=== PATIENT | female | born 1975 | race Caucasian/White ===

== ENCOUNTER 2016-08-28 23:02 | Emergency (ER) | payer OTHER ==
[~2016-08-28] VITALS: Ht 170.2 cm; Wt 120.0 kg
[~2016-08-28 23:02] MED LIST: PERC5TAB12 PO
[2016-08-28] MEDS ORDERED: LORazepam 2 MG/ML VIAL IV PUSH ONE (23:15)
[2016-08-28] MEDS ORDERED: SODIUM CHLORIDE 0.9% FLUSH 10 ML FLUSH IVF PRN (23:15)
[2016-08-28 23:16] VITALS: BP 179/107; PULSE 87; RESP 18; TEMP 98.4; O2SAT 100
[2016-08-28 23:18] VITALS: RESP 18; O2SAT 100
[2016-08-28 23:27] VITALS: BP_SYST 158; BP_SYST 179; BP_DIAS 101; BP_DIAS 107
[2016-08-28 23:31] LABS: AUTOMATED NEUTROPHIL # 6.5 TH/MM3 (1.8-7.7); BASOPHIL # 0.1 TH/MM3 (0-0.2); BASOPHIL % 0.6 % (0.0-2.0); EOSINOPHIL # 0.2 TH/MM3 (0-0.4); EOSINOPHIL % 2.3 % (0.0-4.0); HEMATOCRIT 39.5 % (35.0-46.0); HEMO FLAGS DIFF FINAL; LYMPH % 31.2 % (9.0-44.0); LYMPHOCYTE # 3.3 TH/MM3 (1.0-4.8); MEAN CELL VOLUME 76.4 FL (80.0-100.0); MEAN CORPUSCULAR HEMOGLOBIN 25.7 PG (27.0-34.0); MEAN CORPUSCULAR HGB CONC 33.6 % (32.0-36.0); MONO % 3.8 % (0.0-8.0); NEUT % 62.1 % (16.0-70.0); PLATELET COUNT 284 TH/MM3 (150-450); RED BLOOD COUNT 5.17 MIL/MM3 (4.00-5.30); RED CELL DISTRIBUTION WIDTH 13.4 % (11.6-17.2); WHITE BLOOD COUNT 10.5 TH/MM3 (4.0-11.0)
[2016-08-28 23:38] LABS: CHLORIDE 103 MEQ/L (98-107); POTASSIUM 3.8 MEQ/L (3.5-5.1); SODIUM (NA) 139 MEQ/L (136-145)
[2016-08-28 23:42] LABS: ANION GAP 9 MEQ/L (5-15); BICARBONATE 26.8 MEQ/L (21.0-32.0); BLOOD UREA NITROGEN 14 MG/DL (7-18)
[2016-08-28 23:45] LABS: ALT (GPT) 29 U/L (10-53); AST (GOT) 12 U/L (15-37); GLOMERULAR FILTRATION RATE 66 ML/MIN (>89)
[2016-08-28 23:47] LABS: TOTAL BILIRUBIN ADULT 0.7 MG/DL (0.2-1.0)
[2016-08-28 23:48] LABS: ALKALINE PHOSPHATASE 122 U/L (45-117)
--- NOTE | 2016-08-28 23:48 | PD ---
HPI Chief Complaint: Chest Pain Time Seen by Provider: 23:12 Travel History International Travel<30 days: No Contact w/Intl Traveler<30days: No Traveled to known affect area: No History of Present Illness HPI Is a 41-year-old woman presents to the emergency department complaining of squeezing chest tightness and achiness to started about 9:30 this evening. She' s had recent episodes what she believes to be panic attacks associated with a restless feeling, and anxiety symptoms. She has not had chest pain or shortness of breath with these episodes. She does believe she is been under a lot more stress recently. She's been seen for chest pain one time in the past and was told it was anxiety. She otherwise has been feeling generally well and healthy. She has no history of recent illness or injury. No other complaints. History Past Medical History Narrative Medical Anxiety Tetanus Vaccination: < 5 Years Influenza Vaccination: Yes LMP: 08/22/16 : 5 Para: 1 Social History Alcohol Use: Yes (VERY RARELY, PER PT) Tobacco Use: No Allergies-Medications (Allergen,Severity, Reaction): Coded Allergies: Iodine (Verified Allergy, Severe, Anaphylaxis, 08/28/16) Shellfish (Verified Allergy, Severe, SWEELING TO THROAT AND FACE , 08/28/16 ) PT DENIES Reported Meds & Prescriptions Reported Meds & Active Scripts Active No Active Prescriptions or Reported Medications Review of Systems Except as stated in HPI: all other systems reviewed are Neg Physical Exam Narrative GENERAL: Well-appearing 41-year-old woman, little bit anxious., No acute distress. SKIN: Focused skin assessment warm/dry. HEAD: Atraumatic. Normocephalic. EYES: Pupils equal and round. No scleral icterus. No injection or drainage. ENT: No nasal bleeding or discharge. Mucous membranes pink and moist. NECK: Trachea midline. No JVD. CARDIOVASCULAR: Regular rate and rhythm. No murmur appreciated. RESPIRATORY: Mild tachypnea. No respiratory distress. Lungs are clear to auscultation. GASTROINTESTINAL: Abdomen soft, non-tender, nondistended. Hepatic and splenic margins not palpable. MUSCULOSKELETAL: No obvious deformities. No edema. NEUROLOGICAL: Awake and alert. No obvious cranial nerve deficits. Motor grossly within normal limits. Normal speech. PSYCHIATRIC: Appropriate mood and affect; insight and judgment normal. Data Data Last Documented VS Vital Signs Date Time Temp Pulse Resp B/P Pulse Ox O2 Delivery O2 Flow Rate FiO2 08/28/16 23:27 179/107 158/101 08/28/16 23:18 18 100 Room Air 08/28/16 23:18 87 08/28/16 23:16 98.4 Orders Electrocardiogram (08/28/16 23:12) Complete Blood Count With Diff (08/28/16 23:12) Comprehensive Metabolic Panel (08/28/16 23:12) Magnesium (Mg) (08/28/16 23:12) Troponin I (08/28/16 23:12) Chest, Single Ap (08/28/16 23:12) Ecg Monitoring (08/28/16 23:12) Bilateral Bp Monitoring (08/28/16 23:12) Iv Access Insert/Monitor (08/28/16 23:12) Oximetry (08/28/16 23:12) Oxygen Administration (08/28/16 23:12) Sodium Chloride 0.9% Flush (Ns Flush) (08/28/16:15) Lorazepam Inj (Ativan Inj) (08/28/16 23:15) Labs Laboratory Tests Test 08/28/16 23:18 White Blood Count 10.5 TH/MM3 Red Blood Count 5.17 MIL/MM3 Hemoglobin 13.3 GM/DL Hematocrit 39.5 % Mean Corpuscular Volume 76.4 FL Mean Corpuscular Hemoglobin 25.7 PG Mean Corpuscular Hemoglobin 33.6 % Concent Red Cell Distribution Width 13.4 % Platelet Count 284 TH/MM3 Mean Platelet Volume 7.9 FL Neutrophils (%) (Auto) 62.1 % Lymphocytes (%) (Auto) 31.2 % Monocytes (%) (Auto) 3.8 % Eosinophils (%) (Auto) 2.3 % Basophils (%) (Auto) 0.6 % Neutrophils # (Auto) 6.5 TH/MM3 Lymphocytes # (Auto) 3.3 TH/MM3 Monocytes # (Auto) 0.4 TH/MM3 Eosinophils # (Auto) 0.2 TH/MM3 Basophils # (Auto) 0.1 TH/MM3 CBC Comment DIFF FINAL Differential Comment Sodium Level 139 MEQ/L Potassium Level 3.8 MEQ/L Chloride Level 103 MEQ/L Carbon Dioxide Level 26.8 MEQ/L Anion Gap 9 MEQ/L Blood Urea Nitrogen 14 MG/DL Creatinine 0.94 MG/DL Estimat Glomerular Filtration 66 ML/MIN Rate Random Glucose 162 MG/DL Calcium Level 8.4 MG/DL Magnesium Level 2.0 MG/DL Total Bilirubin 0.7 MG/DL Aspartate Amino Transf 12 U/L (AST/SGOT) Alanine Aminotransferase 29 U/L (ALT/SGPT) Alkaline Phosphatase 122 U/L Troponin I LESS THAN 0.02 NG/ML Total Protein 6.7 GM/DL Albumin 3.5 GM/DL [facility] Medical Decision Making Medical Screen Exam Complete: Yes Emergency Medical Condition: Yes Interpretation(s) My review of EKG: Normal sinus rhythm at a rate of 81, normal axis, normal intervals, occasional PAC. No evidence of acute ischemia. My review of chest x-ray: No acute disease. LABS: CBC is unremarkable. CMP is unremarkable. Magnesium is unremarkable Troponin is negative. Differential Diagnosis Anxiety, panic, chest pain, PE, dissection, other Narrative Course Medical decision making Well 41-year-old woman presents emergency Department with anxiety symptoms with chest pain and pressure, shortness of breath. She looks well. Likely she is having a PE. She is a clear prodrome of increased anxiety symptoms of social stress. She's had one previous similar episode several years ago. EKG is unremarkable. Troponins negative. She has a low heart score. Recommend outpatient follow-up. Diagnosis Primary Impression: Anxiety Additional Impression: Chest pain Additional Instructions: Follow-up with your primary doctor in the next 2-4 days. Return to the emergency department for any worsening chest pain, trouble breathing, or any other new or worsening symptoms. Med/Other Pt SpecificInfo: No Change to Meds Scripts No Active Prescriptions or Reported Meds Disposition: 01 DISCHARGE HOME Condition: Stable Malik Lu MD August 28, 2016 23:48
--- NOTE | 2016-08-28 23:59 | PD ---
Data Data Last Documented VS Vital Signs Date Time Temp Pulse Resp B/P Pulse Ox O2 Delivery O2 Flow Rate FiO2 08/28/16 23:27 179/107 158/101 08/28/16 23:18 18 100 Room Air 08/28/16 23:18 87 08/28/16 23:16 98.4 Orders Electrocardiogram (08/28/16 23:12) Complete Blood Count With Diff (08/28/16 23:12) Comprehensive Metabolic Panel (08/28/16 23:12) Magnesium (Mg) (08/28/16 23:12) Troponin I (08/28/16 23:12) Chest, Single Ap (08/28/16 23:12) Ecg Monitoring (08/28/16 23:12) Bilateral Bp Monitoring (08/28/16 23:12) Iv Access Insert/Monitor (08/28/16 23:12) Oximetry (08/28/16 23:12) Oxygen Administration (08/28/16 23:12) Sodium Chloride 0.9% Flush (Ns Flush) (08/28/16 23:15) Lorazepam Inj (Ativan Inj) (08/28/16 23:15) Labs Laboratory Tests Test 08/28/16 23:18 White Blood Count 10.5 TH/MM3 Red Blood Count 5.17 MIL/MM3 Hemoglobin 13.3 GM/DL Hematocrit 39.5 % Mean Corpuscular Volume 76.4 FL Mean Corpuscular Hemoglobin 25.7 PG Mean Corpuscular Hemoglobin 33.6 % Concent Red Cell Distribution Width 13.4 % Platelet Count 284 TH/MM3 Mean Platelet Volume 7.9 FL Neutrophils (%) (Auto) 62.1 % Lymphocytes (%) (Auto) 31.2 % Monocytes (%) (Auto) 3.8 % Eosinophils (%) (Auto) 2.3 % Basophils (%) (Auto) 0.6 % Neutrophils # (Auto) 6.5 TH/MM3 Lymphocytes # (Auto) 3.3 TH/MM3 Monocytes # (Auto) 0.4 TH/MM3 Eosinophils # (Auto) 0.2 TH/MM3 Basophils # (Auto) 0.1 TH/MM3 CBC Comment DIFF FINAL Differential Comment Sodium Level 139 MEQ/L Potassium Level 3.8 MEQ/L Chloride Level 103 MEQ/L Carbon Dioxide Level 26.8 MEQ/L Anion Gap 9 MEQ/L Blood Urea Nitrogen 14 MG/DL Creatinine 0.94 MG/DL Estimat Glomerular Filtration 66 ML/MIN Rate Random Glucose 162 MG/DL Calcium Level 8.4 MG/DL Magnesium Level 2.0 MG/DL Total Bilirubin 0.7 MG/DL Aspartate Amino Transf 12 U/L (AST/SGOT) Alanine Aminotransferase 29 U/L (ALT/SGPT) Alkaline Phosphatase 122 U/L Troponin I LESS THAN 0.02 NG/ML Total Protein 6.7 GM/DL Albumin 3.5 GM/DL MDM Supervised Visit with MICAH: No Diagnosis Primary Impression: Anxiety Additional Impression: Chest pain Referrals: Costa Joe MD 2 days Additional Instruction: Follow-up with your primary doctor in the next 2-4 days. Return to the emergency department for any worsening chest pain, trouble breathing, or any other new or worsening symptoms. Scripts No Active Prescriptions or Reported Meds Disposition: 01 DISCHARGE HOME Condition: Stable Malik Lu MD August 28, 2016 23:59
[2016-08-29 00:11] VITALS: BP 151/90; PULSE 84; RESP 18; O2SAT 99
--- NOTE | 2016-08-29 00:11 | RADHPO ---
EXAM DATE/TIME: 08/28/2016 23:37 [facility] COMPARISON: CHEST SINGLE AP, December 16, 2015, 8:18. INDICATIONS : Chest pain. MEDICAL HISTORY : Polycystic ovary disease SURGICAL HISTORY : section. ENCOUNTER: Initial ACUITY: 1 day PAIN SCORE: 6/10 LOCATION: Bilateral chest FINDINGS: A single view of the chest demonstrates the lungs to be symmetrically aerated without evidence of mas s, infiltrate or effusion. The cardiomediastinal contours are unremarkable. Osseous structures are intact. CONCLUSION: No acute disease. No significant change has occurred. Bryan Mackey MD on August 29, 2016 at 0:09 Board Certified Radiologist. This report was verified electronically.
--- NOTE | 2016-08-29 15:13 | EKG ---
Date Performed: 08/28/2016 Time Performed: 23:17:02 PTAGE: 41 years EKG: Sinus rhythm with PAC(s) Since previous tracing, no significant change noted Borderline ECG PREVIOUS TRACING : 06/02/2015 05.49 DOCTOR: Lolis Thomas Interpretating Date/Time 08/29/2016 15:12:19
== END 2016-08-29 00:14 | disposition home or self-care (01) ==
LOC: PHED 23:02
DX: F41.9 Anxiety disorder, unspecified (principal); R07.9 Chest pain, unspecified
CPT/HCPCS: 71010; 80053; 83735; 84484; 85025; 93005; 96374; 99285; J2060

== ENCOUNTER 2016-10-23 16:27 | Emergency (ER) | payer BC, OTHER ==
[~2016-10-23] VITALS: Ht 170.2 cm; Wt 120.2 kg
[2016-10-23 16:27] VITALS: BP 111/81; PULSE 91; RESP 18; TEMP 97.8; O2SAT 100
[2016-10-23 16:35] VITALS: BP 143/100; PULSE 79; RESP 16; TEMP 97.8; O2SAT 99
--- NOTE | 2016-10-23 16:39 | PD ---
HPI . left knee pain Chief Complaint: Injury Time Seen by Provider: 16:38 Travel History International Travel<30 days: No Contact w/Intl Traveler<30days: No Traveled to known affect area: No History of Present Illness HPI 41-year-old female with history of depression here with complaints of left knee pain. Patient says she recently got a new kitten and was trying to follow weighted and somehow accidentally twisted her left knee. She tells me she immediately felt pain and had some type of crunching sensation in her knee. She tells me now when she walks he feels a stabbing shooting pain in her knee. Pain is rated at 7/10 without any radiation elsewhere. She denies head injury or loss of consciousness. PFSH Past Medical History Arthritis: No Asthma: No Heart Rhythm Problems: No Cardiovascular Problems: No High Cholesterol: No Chest Pain: No Congestive Heart Failure: No COPD: No Cerebrovascular Accident: No Diabetes: Yes (GESTATIONAL) Diminished Hearing: No Gastrointestinal Disorders: No GERD: No Genitourinary: No Headaches: No Hiatal Hernia: No Hypertension: Yes (PREECLAMPSIA HISTORY) Kidney Stones: No Musculoskeletal: No Neurologic: No Reproductive: Yes (Miscarriages) Respiratory: No Immunizations Current: Yes Migraines: No Renal Failure: No Seizures: Yes (PT STATES BUT NOT DIAGNOSED BY DR) Sleep Apnea: No Ulcer: No ?: Not LMP: 10/19/16 : 5 Para: 1 Miscarriage: 3 Past Surgical History Abdominal Surgery: No Cardiac Surgery: No Section: Yes (X2) Ear Surgery: No Endocrine Surgery: No Eye Surgery: No Genitourinary Surgery: No Neurologic Surgery: No Thoracic Surgery: No Tonsillectomy: Yes Social History Alcohol Use: Yes (VERY RARELY, PER PT) Tobacco Use: No Substance Use: No Allergies-Medications (Allergen,Severity, Reaction): Coded Allergies: Iodine (Verified Allergy, Severe, Anaphylaxis, 10/23/16) Shellfish (Verified Allergy, Severe, SWEELING TO THROAT AND FACE , 10/23/16) PT DENIES Reported Meds & Prescriptions Reported Meds & Active Scripts Active Ibuprofen 800 Mg Tab 800 Mg PO TID Reported Citalopram (Citalopram Hydrobromide) 10 Mg Tab 10 Mg PO DAILY Review of Systems General / Constitutional: No: Fever Eyes: No: Visual changes HENT: No: Headaches Cardiovascular: No: Chest Pain or Discomfort Respiratory: No: Shortness of Breath Gastrointestinal: No: Abdominal Pain Genitourinary: No: Dysuria Musculoskeletal: Positive: Pain (left knee) Skin: No Rash Neurologic: No: Weakness Psychiatric: No: Depression Endocrine: No: Polydipsia Hematologic/Lymphatic: No: Easy Bruising Physical Exam Narrative GENERAL: AAO x 3, no acute distress, Well-nourished, well-developed patient. obese SKIN: Warm and dry. No visible rashes or bruising. HEAD: Normocephalic and atraumatic. EYES: No scleral icterus. No injection or drainage. EOM intact, PERRLA ENT: No nasal drainage noted. Mucous membranes pink. Airway patent. NECK: Supple, trachea midline. No JVD. CARDIOVASCULAR: Regular rate and rhythm without murmurs, gallops, or rubs. RESPIRATORY: Breath sounds equal bilaterally. No accessory muscle use. No rhonchi or rales. GASTROINTESTINAL: Abdomen soft, non-tender, nondistended. EXTREMITIES: No cyanosis or edema. + point tenderness to patella. stress testing + b/l. pain elicited with flexion and extension. BACK: Nontender without obvious deformity. No CVA tenderness. NEURO: CN II-12 intact, campground hand strength normal b/l, UE and LE 5/5, no focal deficits PSYCH: AAO x 3, normal affect. Data Data Last Documented VS Vital Signs Date Time Temp Pulse Resp B/P Pulse Ox O2 Delivery O2 Flow Rate FiO2 10/23/16 16:35 97.8 79 16 143/100 99 Orders Knee, Complete (4vws) (10/23/16 16:42) Ketorolac Inj (Toradol Inj) (10/23/16 16:45) Vlad Bandage (10/23/16 17:19) Crutches (10/23/16 17:19) MDM Medical Decision Making Medical Screen Exam Complete: Yes Emergency Medical Condition: Yes Medical Record Reviewed: Yes Differential Diagnosis left knee strain, ligamentous injury of knee, less likely knee fracture, Narrative Course 41 yr old female here with left knee pain. Bp elevated, but patient is asymptomatic. She has point tenderness to the patella. Flexion and extension elicit pain. I do not suspect a patellar fracture. Nonetheless, I will check imaging to r/o fracture. Xray: no acute fracture. Vlad wrap and crutches provided for support and offloading. Ibuprofen. RICE Advised if pain persists 7-10 days, follow-up with primary care provider. Patient verbalized understanding of instructions, questions were answered, and thanked me for their care. I advised them if their condition worsens, please return to the nearest emergency room for further care. Diagnosis Primary Impression: Left knee pain Qualified Code: M25.562 - Acute pain of left knee Patient Instructions: General Instructions Additional Instructions: Rest the affected area as much as possible. Ice this area for 15-20 minutes at a time. You can do this every hour or as much as tolerated. Keep this area compressed (vlad bandage) as tolerated. Elevate this area. Use ibuprofen as needed for pain and inflammation. If pain persists 7-10 days, follow-up with your primary care provider Med/Other Pt SpecificInfo: Prescription(s) given Scripts Ibuprofen 800 Mg [id number] Mg PO TID #21 TAB Prov:Mia Morrison DO 10/23/16 Disposition: 01 DISCHARGE HOME Condition: Stable Ailin Quezada Oct 23, 2016 16:39
[2016-10-23] MEDS ORDERED: KETOROLAC TROMETHAMINE 60 MG/2 ML (IM) VIAL IM ONE (16:45)
[2016-10-23] MEDS ORDERED: CITA10TA4 PO (16:45)
[2016-10-23] MEDS ORDERED: IBUP800T23 PO (17:20)
--- NOTE | 2016-10-23 17:32 | RADRPT ---
EXAM DATE/TIME: 10/23/2016 17:01 [facility] COMPARISON: No previous studies available for comparison. INDICATIONS : Twisted knee today. Knee pain. MEDICAL HISTORY : Polycystic ovarian disease. SURGICAL HISTORY : None. ENCOUNTER: Initial ACUITY: 1 day PAIN SCORE: 7/10 LOCATION: Left knee FINDINGS: Four view examination of the left knee demonstrates no evidence of fracture or dislocation. Bony min eralization is normal. The articular surfaces are intact. The suprapatellar soft tissues have a nor mal configuration. CONCLUSION: No acute fracture. Gerardo Bruner MD on October 23, 2016 at 17:30 Board Certified Radiologist. This report was verified electronically.
== END 2016-10-23 17:52 | disposition home or self-care (01) ==
LOC: PHEFT 16:27
DX: M25.562 Pain in left knee (principal)
CPT/HCPCS: 73564; 96372; 99284; E0113; J1885

== ENCOUNTER 2017-07-12 12:54 | Observation (INO) | payer BC ==
[~2017-07-12 12:54] MED LIST changes: +CITA10TA4 PO; +IBUP1TAB7 PO; -PERC5TAB12 PO
[2017-07-12] MEDS ORDERED: NITROGLYCERIN 0.4 MG SL 25 TABS/BTL SL ONE (13:00)
[2017-07-12] MEDS ORDERED: ASPIRIN 325 MG TAB PO ONE (13:00)
[2017-07-12] MEDS ORDERED: SODIUM CHLORIDE 0.9% FLUSH 10 ML FLUSH IVF PRN (13:00)
[2017-07-12 13:01] VITALS: BP 134/98; PULSE 88; RESP 16; TEMP 98.1; O2SAT 95
--- NOTE | 2017-07-12 13:10 | PD ---
HPI Chief Complaint: Chest Pain Time Seen by Provider: 12:58 Travel History International Travel<30 days: No Contact w/Intl Traveler<30days: No History of Present Illness HPI 42-year-old female states at 4:30 this morning she awoke with chest pain. She states no other concurrent complaints. She states the pain is worse whenever she takes a deep breath. She denies other modifying factors. She denies recurrent history of this. She states she has stress going on and so she tried yoga and meditation but that did not help. She states this feels different than her usual anxiety. She denies taking an aspirin yet today. She denies routine cardiac workup in the past. Quality is pressure. Severity is moderate. She denies any associated symptoms. PFSH Past Medical History Arthritis: No Asthma: No Anxiety: Yes Heart Rhythm Problems: No Cardiovascular Problems: No High Cholesterol: No Chest Pain: No Congestive Heart Failure: No COPD: No Cerebrovascular Accident: No Diabetes: Yes (GESTATIONAL) Patient Takes Glucophage: No Diminished Hearing: No Gastrointestinal Disorders: No GERD: No Genitourinary: No Headaches: No Hiatal Hernia: No Hypertension: Yes (PREECLAMPSIA HISTORY) Kidney Stones: No Musculoskeletal: No Neurologic: No Reproductive: Yes (Miscarriages) Respiratory: No Immunizations Current: Yes Migraines: No Renal Failure: No Seizures: Yes (PT STATES BUT NOT DIAGNOSED BY ) Sleep Apnea: No Ulcer: No Tetanus Vaccination: < 5 Years Influenza Vaccination: No ?: Not : 5 Para: 1 Miscarriage: 3 Past Surgical History Abdominal Surgery: No Cardiac Surgery: No Section: Yes (X2) Ear Surgery: No Endocrine Surgery: No Eye Surgery: No Genitourinary Surgery: No Neurologic Surgery: No Thoracic Surgery: No Tonsillectomy: Yes Family History Family Myocardial Infarction: Yes (maternal grandparents) Social History Alcohol Use: Yes (VERY RARELY, PER PT) Tobacco Use: No Substance Use: No Allergies-Medications (Allergen,Severity, Reaction): Coded Allergies: iodine (Unverified Allergy, Severe, Anaphylaxis, 07/12/17) potassium iodide (Unverified Allergy, Severe, Anaphylaxis, 07/12/17) povidone-iodine (Unverified Allergy, Severe, Anaphylaxis, 07/12/17) shellfish derived (Unverified Allergy, Severe, SWEELING TO THROAT AND FACE , 07/12/17) PT DENIES sodium iodide (Unverified Allergy, Severe, Anaphylaxis, 07/12/17) sodium iodide (Unverified Allergy, Severe, Anaphylaxis, 07/12/17) Reported Meds & Prescriptions Reported Meds & Active Scripts Active Reported Citalopram (Citalopram Hydrobromide) 10 Mg Tab 10 Mg PO DAILY Review of Systems Except as stated in HPI: all other systems reviewed are Neg Physical Exam Narrative GENERAL: 42-year-old female in no apparent distress SKIN: Focused skin assessment warm/dry. HEAD: Atraumatic. Normocephalic. EYES: Pupils equal and round. No scleral icterus. No injection or drainage. ENT: No nasal bleeding or discharge. Mucous membranes pink and moist. NECK: Trachea midline. CARDIOVASCULAR: Regular rate and rhythm. No murmur appreciated. RESPIRATORY: No accessory muscle use. Clear to auscultation. Breath sounds equal bilaterally. GASTROINTESTINAL: Abdomen soft, non-tender, nondistended. MUSCULOSKELETAL: No obvious deformities. No clubbing. No cyanosis. No edema. NEUROLOGICAL: Awake and alert. No obvious cranial nerve deficits. Motor grossly within normal limits. Normal speech. Data Data Last Documented VS Vital Signs Date Time Temp Pulse Resp B/P (MAP) Pulse Ox O2 Delivery O2 Flow Rate FiO2 07/12/17 13:40 16 07/12/17 13:01 98.1 88 134/98 (110) 95 Nasal Cannula Orders Orders Electrocardiogram (07/12/17 12:58) Ckmb (Isoenzyme) Profile (07/12/17 12:58) Complete Blood Count With Diff (07/12/17 12:58) Comprehensive Metabolic Panel (07/12/17 12:58) Magnesium (Mg) (07/12/17 12:58) Prothrombin Time / Inr (Pt) (07/12/17 12:58) Act Partial Throm Time (Ptt) (07/12/17 12:58) Troponin I (07/12/17 12:58) Ecg Monitoring (07/12/17 12:58) Bilateral Bp Monitoring (07/12/17 12:58) Iv Access Insert/Monitor (07/12/17 12:58) Oximetry (07/12/17 12:58) Aspirin (Aspirin) (07/12/17 13:00) Sodium Chloride 0.9% Flush (Ns Flush) (07/12/17 13:00) Nitroglycerin Sl (Nitrostat Sl) (07/12/17 13:00) Chest, Pa & Lat (07/12/17 12:58) Admit Order (Ed Use Only) (07/12/17 14:36) Labs Laboratory Tests Test 07/12/17 13:25 White Blood Count 6.5 TH/MM3 Red Blood Count 5.07 MIL/MM3 Hemoglobin 12.8 GM/DL Hematocrit 38.5 % Mean Corpuscular Volume 76.0 FL Mean Corpuscular Hemoglobin 25.3 PG Mean Corpuscular Hemoglobin Concent 33.3 % Red Cell Distribution Width 12.6 % Platelet Count 276 TH/MM3 Mean Platelet Volume 7.7 FL Neutrophils (%) (Auto) 64.3 % Lymphocytes (%) (Auto) 30.2 % Monocytes (%) (Auto) 3.4 % Eosinophils (%) (Auto) 1.5 % Basophils (%) (Auto) 0.6 % Neutrophils # (Auto) 4.2 TH/MM3 Lymphocytes # (Auto) 2.0 TH/MM3 Monocytes # (Auto) 0.2 TH/MM3 Eosinophils # (Auto) 0.1 TH/MM3 Basophils # (Auto) 0.0 TH/MM3 CBC Comment DIFF FINAL Differential Comment Prothrombin Time 10.7 SEC Prothromb Time International Ratio 1.1 RATIO Activated Partial Thromboplast Time 26.8 SEC Blood Urea Nitrogen 12 MG/DL Creatinine 1.00 MG/DL Random Glucose 212 MG/DL Total Protein 7.0 GM/DL Albumin 3.5 GM/DL Calcium Level 8.2 MG/DL Magnesium Level 2.0 MG/DL Alkaline Phosphatase 102 U/L Aspartate Amino Transf (AST/SGOT) 17 U/L Alanine Aminotransferase (ALT/SGPT) 30 U/L Total Bilirubin 1.0 MG/DL Sodium Level 135 MEQ/L Potassium Level 3.9 MEQ/L Chloride Level 103 MEQ/L Carbon Dioxide Level 24.7 MEQ/L Anion Gap 7 MEQ/L Estimat Glomerular Filtration Rate 61 ML/MIN Total Creatine Kinase 80 U/L Troponin I LESS THAN 0.02 NG/ML MDM Medical Decision Making Medical Screen Exam Complete: Yes Emergency Medical Condition: Yes Medical Record Reviewed: Yes (past history confirmed) Interpretation(s) CBC & BMP Diagram 07/12/17 13:25 Total Protein 7.0, Albumin 3.5, Calcium Level 8.2 L, Magnesium Level 2.0, Alkaline Phosphatase 102, Aspartate Amino Transf (AST/SGOT) 17, Alanine Aminotransferase (ALT/SGPT) 30, Total Bilirubin 1.0 cxr no acute Differential Diagnosis Musculoskeletal, gastritis, atypical cardiac Narrative Course Will check blood work, chest x-ray and dose with aspirin and nitroglycerin and reevaluate ed workup no acute, patient agrees to hydroblaster observation Physician Communication Physician Communication dr pack agrees to admit Diagnosis Primary Impression: Chest pain Qualified Codes: R07.9 - Chest pain, unspecified Admitting Information Admitting Physician Requests: Observation Lisa Marie MD Jul 12, 2017 13:10
[2017-07-12 13:41] LABS: AUTOMATED NEUTROPHIL # 4.2 TH/MM3 (1.8-7.7); BASOPHIL % 0.6 % (0.0-2.0); EOSINOPHIL # 0.1 TH/MM3 (0-0.4); EOSINOPHIL % 1.5 % (0.0-4.0); HEMATOCRIT 38.5 % (35.0-46.0); HEMOGLOBIN 12.8 GM/DL (11.6-15.3); LYMPH % 30.2 % (9.0-44.0); MEAN CORPUSCULAR HEMOGLOBIN 25.3 PG (27.0-34.0); MEAN CORPUSCULAR HGB CONC 33.3 % (32.0-36.0); MEAN PLATELET VOLUME 7.7 FL (7.0-11.0); MONO % 3.4 % (0.0-8.0); MONOCYTE # 0.2 TH/MM3 (0-0.9); NEUT % 64.3 % (16.0-70.0); PLATELET COUNT 276 TH/MM3 (150-450); RED BLOOD COUNT 5.07 MIL/MM3 (4.00-5.30); RED CELL DISTRIBUTION WIDTH 12.6 % (11.6-17.2); WHITE BLOOD COUNT 6.5 TH/MM3 (4.0-11.0)
[2017-07-12 13:50] LABS: CHLORIDE 103 MEQ/L (98-107); SODIUM (NA) 135 MEQ/L (136-145)
[2017-07-12 13:53] LABS: INTERNATIONAL NORMALIZED RATIO 1.1 RATIO; PROTHROMBIN TIME - PATIENT 10.7 SEC (9.8-11.6)
[2017-07-12 13:54] LABS: CALCIUM 8.2 MG/DL (8.5-10.1)
--- NOTE | 2017-07-12 13:54 | RADRPT ---
EXAM DATE/TIME: 07/12/2017 13:04 [facility] COMPARISON: CHEST PA & LAT, June 03, 2015, 13:13. INDICATIONS : Chest pain, short of breath. MEDICAL HISTORY : None. SURGICAL HISTORY : None. ENCOUNTER: Initial ACUITY: 1 day PAIN SCORE: 6/10 LOCATION: Bilateral chest FINDINGS: PA and lateral views of the chest demonstrate the lungs to be symmetrically aerated without evidence of mass, infiltrate or effusion. The cardiomediastinal contours are unremarkable. Osseous structure s are intact. CONCLUSION: Normal examination. Royal Mathew Jr., MD on July 12, 2017 at 13:52 Board Certified Radiologist. This report was verified electronically.
[2017-07-12 13:55] LABS: ALBUMIN 3.5 GM/DL (3.4-5.0); BICARBONATE 24.7 MEQ/L (21.0-32.0); BLOOD UREA NITROGEN 12 MG/DL (7-18); GLUCOSE,RANDOM 212 MG/DL (74-106)
[2017-07-12 13:57] LABS: ALT (GPT) 30 U/L (10-53)
[2017-07-12 13:58] LABS: AST (GOT) 17 U/L (15-37); GLOMERULAR FILTRATION RATE 61 ML/MIN (>89)
[2017-07-12 14:00] LABS: ALKALINE PHOSPHATASE 102 U/L (45-117)
[2017-07-12 14:03] LABS: TROPONIN I LESS THAN 0.02 NG/ML (0.02-0.05)
[2017-07-12] MEDS ORDERED: TEMAZEPAM 15 MG CAP PO PRN (15:00)
[2017-07-12] MEDS ORDERED: GLUCAGON 1 MG/ML VIAL OTHER PRN (15:00)
[2017-07-12] MEDS ORDERED: DEXTROSE 50% IN WATER 50 ML VIAL(D50) IV PUSH PRN (15:00)
[2017-07-12] MEDS ORDERED: ONDANSETRON HCL 4 MG/2 ML VIAL IV PUSH PRN (15:00)
[2017-07-12] MEDS ORDERED: ACETAMINOPHEN 500 MG CPLT PO PRN (15:00)
[2017-07-12] MEDS ORDERED: NITROGLYCERIN 0.4 MG SL 25 TABS/BTL SL PRN (15:00)
[2017-07-12] MEDS ORDERED: PILL SPLITTER OTHER PRN (15:15)
[2017-07-12 15:20] VITALS: PULSE 70
[2017-07-12 15:35] VITALS: BP 115/72
[2017-07-12 16:00] VITALS: BP 155/85; PULSE 65; RESP 18; TEMP 97.8; O2SAT 97
[2017-07-12] MEDS: ACETAMINOPHEN/HYDROcodone 325 MG/7.5 MG TAB PO PRN ×2 (16:11→20:27)
[2017-07-12] MEDS: INSULIN ASPART SUPPLEMENTAL SCALE SQ SCH ×2 (17:00→21:02)
[2017-07-12 17:06] LABS: TROPONIN I LESS THAN 0.02 NG/ML (0.02-0.05)
--- NOTE | 2017-07-12 17:06 | HHI.HP ---
HPI Service [facility] Primary Care Physician Non-Staff Admission Diagnosis chest pain Diagnoses: (1) Chest pain Diagnosis: Principal (2) Hyperglycemia Diagnosis: Principal Chief Complaint: Chest pain Travel History International Travel<30 Days: No Contact w/Intl Traveler <30 Da: No History of Present Illness 42-year-old female with known history of anxiety, gestational diabetes who presented to the hospital because of chest discomfort. Patient states that she is in normal state of health until this morning at 4:30 when she woke up with midsternal chest discomfort. Which she describes as 6/10 on a pain scale that is a pressure/heaviness type discomfort that progressively got worse throughout the day. Patient states that the pain radiated to her neck and forehead. Denied any nausea, vomiting, diaphoresis. She did have some shortness of breath. Patient indicates that she did try some Tums since she thought it was indigestion but the pain did not improve. She did go to work but the pain progressively got worse so she came to the emergency department for evaluation. Patient was given nitroglycerin with improvement of her shortness of breath, however the pain never has improved. Patient had workup done emergency department and it was recommended by the ER physician the patient be observed in the chest pain center for further evaluation management. At the time of seeing the patient she is still experiencing chest discomfort. It is reproducible on palpation in the midsternal region. Patient denies any previous cardiac workup. Review of Systems Respiratory: COMPLAINS OF: Shortness of breath Cardiovascular: COMPLAINS OF: Chest pain Except as stated in HPI: all other systems reviewed are Neg Past Family Social History Past Medical History Anxiety Gestational diabetes Past Surgical History 2 Tonsillectomy Reported Medications Reported Meds & Active Scripts Active Reported Citalopram (Citalopram Hydrobromide) 10 Mg Tab 10 Mg PO DAILY Allergies: Coded Allergies: iodine (Unverified Allergy, Severe, Anaphylaxis, 07/12/17) potassium iodide (Unverified Allergy, Severe, Anaphylaxis, 07/12/17) povidone-iodine (Unverified Allergy, Severe, Anaphylaxis, 07/12/17) shellfish derived (Unverified Allergy, Severe, SWEELING TO THROAT AND FACE , 07/12/17) PT DENIES sodium iodide (Unverified Allergy, Severe, Anaphylaxis, 07/12/17) sodium iodide (Unverified Allergy, Severe, Anaphylaxis, 07/12/17) Family History Reviewed is significant for mother and father both alive without any history of heart disease, lung disease, diabetes, cancer, seizure. Mother does have history of stroke. She indicates that her grandparents have history of cardiac disease with stenting Social History Patient denies any tobacco, alcohol or illicit drugs. Physical Exam Vital Signs Vital Signs Date Time Temp Pulse Resp B/P (MAP) Pulse Ox O2 Delivery O2 Flow Rate FiO2 07/12/17 15:35 70 16 115/72 (86) 98 07/12/17 13:40 16 07/12/17 13:01 98.1 88 16 134/98 (110) 95 Nasal Cannula 07/12/17 13:01 88 16 95 Room Air Physical Exam GENERAL: Well-developed, well-nourished, in no acute distress. alert and orientated HEENT: Head is normocephalic without any lesions or masses noted. Facial features are symmetric. Eyes: Pupils equal round reactive to light. Extraocular muscles are intact. Conjunctivae were clear. Oropharyngeal: Pharynx without any erythema edema. Tongue is midline without deviation. Buccal mucosa is moist without any masses or lesions NECK: Supple without any masses. Trachea midline no deviation. No JVD, no bruits are appreciated CARDIAC: Regular rhythm, regular rate. S1/S2 are heard. No murmurs gallops or rubs. Reproducible palpable tenderness noted midsternal LUNGS: Clear to auscultation bilaterally. No wheeze, rhonchi or rales. No use of accessory muscles on inspiration or expiration. ABDOMEN: Soft, nontender. Nondistended. Bowel sounds heard in all 4 quadrants. No organomegaly or masses. Negative rebound, negative guarding EXTREMITIES: No edema, pulses are equal bilaterally. No cyanosis or clubbing NEUROLOGY: Mood and affect appear appropriate. Cranial nerves II through XII grossly intact. Muscle strength 5/5 in upper and lower extremities bilaterally. Deep tendon reflexes are 2+ in upper and lower extremities bilaterally. Laboratory Laboratory Tests Test 07/12/17 13:25 07/12/17 16:25 White Blood Count 6.5 Red Blood Count 5.07 Hemoglobin 12.8 Hematocrit 38.5 Mean Corpuscular Volume 76.0 Mean Corpuscular Hemoglobin 25.3 Mean Corpuscular Hemoglobin Concent 33.3 Red Cell Distribution Width 12.6 Platelet Count 276 Mean Platelet Volume 7.7 Neutrophils (%) (Auto) 64.3 Lymphocytes (%) (Auto) 30.2 Monocytes (%) (Auto) 3.4 Eosinophils (%) (Auto) 1.5 Basophils (%) (Auto) 0.6 Neutrophils # (Auto) 4.2 Lymphocytes # (Auto) 2.0 Monocytes # (Auto) 0.2 Eosinophils # (Auto) 0.1 Basophils # (Auto) 0.0 CBC Comment DIFF FINAL Differential Comment Prothrombin Time 10.7 Prothromb Time International Ratio 1.1 Activated Partial Thromboplast Time 26.8 Blood Urea Nitrogen 12 Creatinine 1.00 Random Glucose 212 Total Protein 7.0 Albumin 3.5 Calcium Level 8.2 Magnesium Level 2.0 Alkaline Phosphatase 102 Aspartate Amino Transf (AST/SGOT) 17 Alanine Aminotransferase (ALT/SGPT) 30 Total Bilirubin 1.0 Sodium Level 135 Potassium Level 3.9 Chloride Level 103 Carbon Dioxide Level 24.7 Anion Gap 7 Estimat Glomerular Filtration Rate 61 Total Creatine Kinase 80 Troponin I LESS THAN 0.02 Result Diagram: 07/12/17 1325 07/12/17 1325 Imaging Last Impressions Chest X-Ray 07/12/17 1258 Signed Impressions: Service Date/Time: Wednesday, July 12, 2017 13:04 - CONCLUSION: Normal examination. MD Humberto Mcdermott Jr. VTE Risk Assessment Caprini VTE Risk Assessment: No/Low Risk (score <= 1) Caprini Risk Assessment Model Point Value = 1 Point Value = 2 Point Value = 3 Point Value = 5 Age 41-60 Minor surgery BMI > 25 kg/m2 Swollen legs Varicose veins or History of unexplained or recurrent spontaneous Oral contraceptives or hormone replacement Sepsis (< 1 month) Serious lung disease, including pneumonia (< 1 month) Abnormal pulmonary function Acute myocardial infarction Congestive heart failure (< 1 month) History of inflammatory bowel disease Medical patient at bed rest Age 61-74 Arthroscopic surgery Major open surgery (> 45 min) Laparoscopic surgery (> 45 min) Malignancy Confined to bed (> 72 hours) Immobilizing plaster cast Central venous access Age >= 75 History of VTE Family history of VTE Factor V Leiden Prothrombin [id number] Lupus anticoagulant Anticardiolipin antibodies Elevated serum homocysteine Heparin-induced thrombocytopenia Other congenital or acquired thrombophilia Stroke (< 1 month) Elective arthroplasty Hip, pelvis, or leg fracture Acute spinal cord injury (< 1 month) Prophylaxis Regimen Total Risk Factor Score Risk Level Prophylaxis Regimen 0-1 Low Early ambulation 2 Moderate Order ONE of the following: *Sequential Compression Device (SCD) *Heparin 5000 units SQ BID 3-4 Higher Order ONE of the following medications: *Heparin 5000 units SQ TID *Enoxaparin/Lovenox 40 mg SQ daily (WT < 150 kg, CrCl > 30 mL/min) *Enoxaparin/Lovenox 30 mg SQ daily (WT < 150 kg, CrCl > 10-29 mL/min) *Enoxaparin/Lovenox 30 mg SQ BID (WT < 150 kg, CrCl > 30 mL/min) AND/OR *Sequential Compression Device (SCD) 5 or more Highest Order ONE of the following medications: *Heparin 5000 units SQ TID (Preferred with Epidurals) *Enoxaparin/Lovenox 40 mg SQ daily (WT < 150 kg, CrCl > 30 mL/min) *Enoxaparin/Lovenox 30 mg SQ daily (WT < 150 kg, CrCl > 10-29 mL/min) *Enoxaparin/Lovenox 30 mg SQ BID (WT < 150 kg, CrCl > 30 mL/min) AND *Sequential Compression Device (SCD) Assessment and Plan Assessment and Plan Chest pain, atypical Patient with risk factor to include body habitus, grandparent with family history of heart disease, hypoglycemia We'll continue to rule patient out for acute coronary event with serial cardiac enzymes We'll continue serial EKGs, original EKG was reviewed by myself and indicates normal sinus rhythm Will pursue myocardial perfusion study in the morning due to patient's body habitus and physical capability to rule out any underlying ischemia continue aspirin, nitroglycerin as needed, [place], morphine for pain control Hyperglycemia with history of gestational diabetes, obesity Check hemoglobin A1c diabetic diet Accu-Cheks with sliding scale insulin Anxiety Continued home medications DVT prevention sequential compression devices Problem Qualifiers (1) Chest pain: Qualified Codes: R07.9 - Chest pain, unspecified Haroldo Null Jul 12, 2017 17:06
[2017-07-12 20:00] VITALS: BP 179/79; PULSE 87; PULSE 99; RESP 21; TEMP 96.6; O2SAT 97
[2017-07-12] MEDS: SODIUM CHLORIDE 0.9% FLUSH 10 ML FLUSH IV FLUSH SCH (20:25)
[2017-07-12 20:29] LABS: TROPONIN I LESS THAN 0.02 NG/ML (0.02-0.05)
--- NOTE | 2017-07-12 22:23 | EKG ---
Date Performed: 07/12/2017 Time Performed: 19:31:27 PTAGE: 42 years EKG: Sinus rhythm NORMAL ECG PREVIOUS TRACING : 07/12/2017 16.31 Since the previous tracing, no significant change noted DOCTOR: Long Chao Interpretating Date/Time 07/12/2017 22:22:36
[2017-07-12 23:17] VITALS: O2SAT 97
[2017-07-12] MEDS: SODIUM CHLORIDE 0.9% FLUSH 10 ML FLUSH IV FLUSH PRN ×2 (23:53→23:55)
[2017-07-12] MEDS: MORPHINE SULFATE 2 MG/ML INJ IV PUSH PRN ×2 (23:53→23:55)
[2017-07-13] VITALS (7 sets, daily range): BP systolic 136–171; BP diastolic 88–98; PULSE 76–109; RESP 18–20; TEMP 96.2–97.5; O2SAT 95–99
[2017-07-13] MEDS: MORPHINE SULFATE 2 MG/ML INJ IV PUSH PRN (03:29)
[2017-07-13] MEDS: INSULIN ASPART SUPPLEMENTAL SCALE SQ SCH (08:00)
[2017-07-13] MEDS: ACETAMINOPHEN/HYDROcodone 325 MG/7.5 MG TAB PO PRN ×2 (08:29→11:55)
[2017-07-13] MEDS: SODIUM CHLORIDE 0.9% FLUSH 10 ML FLUSH IV FLUSH SCH (08:29)
--- NOTE | 2017-07-13 08:56 | HHI.PR ---
Subjective Remarks Patient seen and examined today for follow-up on chest pain. Patient states that she is still had the constant chest discomfort since being in the hospital. She is describing as like a golf ball pushing its way out of her chest and is reproducible on palpation. She did use nitroglycerin last evening without any relief. She also uses morphine with minimal relief. Blood pressure has been elevated since hospitalization. Patient remains afebrile Objective Vitals Vital Signs Date Time Temp Pulse Resp B/P (MAP) Pulse Ox O2 Delivery O2 Flow Rate FiO2 07/13/17 04:29 18 07/13/17 04:00 97.5 91 18 143/90 (107) 96 07/13/17 00:00 97.1 95 19 163/98 (119) 95 07/12/17 23:17 97 21 07/12/17 21:27 20 07/12/17 21:27 20 07/12/17 20:00 96.6 87 21 179/79 (112) 97 07/12/17 20:00 99 07/12/17 16:00 97.8 65 18 155/85 (108) 97 07/12/17 15:35 70 16 115/72 (86) 98 07/12/17 15:20 70 07/12/17 13:40 16 07/12/17 13:01 98.1 88 16 134/98 (110) 95 Nasal Cannula 07/12/17 13:01 88 16 95 Room Air I/O 07/12/17 07/12/17 07/12/17 07/13/17 07/13/17 07/13/17 07:00 15:00 23:00 07:00 15:00 23:00 Intake Total 600 ml Balance 600 ml Intake Oral 600 ml # Voids 3 Result Diagram: 07/12/17 1325 07/12/17 1325 Objective Remarks GENERAL: Well-developed, obese, in no acute distress. alert and orientated HEENT: Head is normocephalic without any lesions or masses noted. Facial features are symmetric. Eyes: Extraocular muscles are intact. Conjunctivae were clear. NECK: Supple without any masses. Trachea midline no deviation. No JVD, CARDIAC: Regular rhythm, regular rate. S1/S2 are heard. No murmurs gallops or rubs. Reproducible palpable tenderness noted over the mid sternum LUNGS: Clear to auscultation bilaterally. No wheeze, rhonchi or rales. No use of accessory muscles on inspiration or expiration. ABDOMEN: Soft, nontender. Nondistended. Bowel sounds heard in all 4 quadrants. No organomegaly or masses. Negative rebound, negative guarding EXTREMITIES: No edema, pulses are equal bilaterally. No cyanosis or clubbing NEUROLOGY: Mood and affect appear appropriate. Cranial nerves II through XII grossly intact. Moving all extremities, speech is clear Urinary Catheter: No Vascular Central Line Catheter: No A/P Assessment and Plan Chest pain, atypical Patient with risk factor to include body habitus, grandparent with family history of heart disease, hypoglycemia Patient has been ruled out for acute coronary event with serial cardiac enzymes are negative Serial EKGs reviewed by myself and indicated normal sinus rhythm without any changes Myocardial perfusion study was performed which indicated no signs of ischemia. Low risk continue aspirin, nitroglycerin as needed, [place], morphine for pain control Hypertension Patient with multiple blood pressure readings with systolic pressure ranging anywhere from 140-180 Start lisinopril 5 mg daily Hyperglycemia with history of gestational diabetes, obesity Awaiting hemoglobin A1c diabetic diet Accu-Cheks with sliding scale insulin Consulted rn diabetes educator, dietitian Start Glucophage 850 mg p.o. daily Anxiety Continued home medications DVT prevention sequential compression devices Discharge Planning Discharge home in stable condition Activity: Ad fercho. Diet: Diabetic diet Medication per medication reconciliation Follow-up of her medical doctor in 1 week Haroldo Null Jul 13, 2017 08:56
[2017-07-13] MEDS ORDERED: CITALOPRAM HYDROBROMIDE 20 MG TAB PO SCH (09:00)
[2017-07-13] MEDS ORDERED: LISINOPRIL 5 MG TAB PO SCH (09:00)
[2017-07-13] MEDS ORDERED: ASPIRIN 325 MG TAB PO SCH (09:00)
[2017-07-13] MEDS ORDERED: REGADENOSON INJ 0.4 MG/5 ML SYR IV ONE (09:20)
--- NOTE | 2017-07-13 10:49 | RADRPT ---
EXAM DATE/TIME: 07/13/2017 09:06 [place] COMPARISON: No previous studies available for comparison. INDICATIONS : Midsternal chest pain radiating to the neck and forehead with dyspnea. Angina. DOSE: 26..9 mCi Tc99m Myoview at stress. 8.1 mCi Tc99m Myoview at rest. 0.4 mg Lexiscan STRESS SYMPTOMS: Lightheaded. EJECTION FRACTION: 57% MEDICAL HISTORY : Diabetes mellitus type 2. Hypertension. SURGICAL HISTORY : Tonsillectomy. section. ENCOUNTER: Initial ACUITY: 1 day PAIN SCALE: 6/10 LOCATION: Midsternal chest TECHNIQUE: The patient underwent pharmacologic stress with infusion of prescribed dose. Continuous ECG tracing was monitored during stress. Gated SPECT imaging was performed after stress and conventional SPECT i maging was performed at rest. The examination was performed on a SPECT/CT scanner, both attenuation and non-corrected datasets were reviewed. FINDINGS: DISTRIBUTION: The maximum perfused segment at stress is in the lateral wall. PERFUSION STUDY: The pattern of perfusion at stress is within normal limits. GATED STUDY: There is intact wall motion and thickening without hypokinetic or dyskinetic segments. CONCLUSION: Unremarkable myocardial perfusion study. RISK CATEGORY: Low Bryan Mackey MD on July 13, 2017 at 10:47 Board Certified Radiologist. This report was verified electronically.
--- NOTE | 2017-07-13 11:26 | HHI.DCPOC ---
Discharge Care Plan Diagnosis: (1) Chest pain (2) Hyperglycemia Goals to Promote Your Health * To prevent worsening of your condition and complications * To maintain your health at the optimal level Directions to Meet Your Goals Take your medications as prescribed Follow your dietary instruction Follow activity as directed Keep your appointments as scheduled Take your immunizations and boosters as scheduled If your symptoms worsen call your PCP, if no PCP go to Urgent Care Center or Emergency Room Smoking is Dangerous to Your Health. Avoid second hand smoke Call the 24-hour hour crisis hotline for domestic abuse at Haroldo Null Jul 13, 2017 11:26
[2017-07-13] MEDS ORDERED: LISI-519 PO (11:27)
[2017-07-13] MEDS ORDERED: GLUCKIT15 (11:30)
[2017-07-13] MEDS ORDERED: LANCETS1 MI1 (11:30)
[2017-07-13] MEDS ORDERED: GLUCTES12 (11:30)
[2017-07-13] MEDS ORDERED: metFORMIN HCL 850 MG TAB PO SCH (11:45)
[2017-07-13] MEDS ORDERED: INSULIN ASPART SUPPLEMENTAL SCALE SQ SCH (12:00)
[2017-07-13] MEDS ORDERED: METF850 PO (13:26)
--- NOTE | 2017-07-13 16:41 | EKG ---
Date Performed: 07/12/2017 Time Performed: 16:31:54 PTAGE: 42 years EKG: Sinus rhythm NORMAL ECG PREVIOUS TRACING : 07/12/2017 12.59 Since previous tracing, no significant change noted DOCTOR: Eduardo Rhodes Interpretating Date/Time 07/13/2017 16:38:58
--- NOTE | 2017-07-13 16:42 | EKG ---
Date Performed: 07/12/2017 Time Performed: 12:59:26 PTAGE: 42 years EKG: Sinus rhythm NORMAL ECG INTERPRETATION BASED ON A DEFAULT AGE OF 40 YEARS PREVIOUS TRACING : 08/28/2016 23.17 Since previous tracing, no significant change noted DOCTOR: Eduardo Rhodes Interpretating Date/Time 07/13/2017 16:40:00
[2017-07-13 22:21] LABS: HEMOGLOBIN A1C 8.3 % (4.3-6.0)
--- NOTE | 2017-07-14 10:26 | TR ---
Date Performed: 07/13/2017 Time Performed: 09:41:31 DOCTOR: Costa Cartwright DRUG LIST: CLINICAL HISTORY: REASON FOR TEST: REASON FOR ENDING: OBSERVATION: CONCLUSION: Lexiscan stress test was performed under standard four minute protocol. Radion[place] e was injected one minute prior to ending the test. No electrocardiographic abormalities were present to suggest ischemia. Nuclear imaging and interpretation are pending. COMMENTS:
== END 2017-07-13 15:50 | disposition home or self-care (01) ==
LOC: PHED 12:54 → PHEDA 14:36 → PH3A 15:34
PROVIDERS: ADMIT Hospitalist; ATTEND Hospitalist
DX: R07.89 Other chest pain (principal); R73.9 Hyperglycemia, unspecified; R06.02 Shortness of breath; I10 Essential (primary) hypertension; F41.9 Anxiety disorder, unspecified; E66.9 Obesity, unspecified; Z86.32 Personal history of gestational diabetes; Z82.49 Family history of ischemic heart disease and other diseases of the circulatory system
CPT/HCPCS: 71046; 78452; 80053; 82550; 82948; 83036; 83735; 84484; 84703; 85025; 85610; 85730; 93005; 93017; A9502; J1815; J2270; J2785; 96372; 96374; 96376; G0378

== ENCOUNTER 2017-07-23 17:28 | Emergency (ER) | payer BC ==
[~2017-07-23] VITALS: Ht 170.2 cm; Wt 125.0 kg
[~2017-07-23 17:28] MED LIST changes: +GLUCKIT15; +GLUCTES12; -IBUP1TAB7 PO; +LANCETS1 MI1; +LISI-519 PO; +METF850 PO
[2017-07-23 18:38] VITALS: BP 143/90; PULSE 93; RESP 16; TEMP 97.6; O2SAT 99
[2017-07-23] MEDS ORDERED: REGL10TA5 PO (22:51)
[2017-07-23] MEDS ORDERED: ROBA750T PO (22:51)
[2017-07-23] MEDS ORDERED: PERC5TAB12 PO (22:51)
== END 2017-07-23 23:34 | disposition left against medical advice (07) ==
LOC: NED 17:28
DX: M54.9 Dorsalgia, unspecified (principal); Z53.21 Procedure and treatment not carried out due to patient leaving prior to being seen by health care provider
CPT/HCPCS: 99281

== ENCOUNTER 2017-07-23 19:56 | Emergency (ER) | payer BC ==
[~2017-07-23] VITALS: Ht 170.2 cm; Wt 128.0 kg
[2017-07-23 19:59] VITALS: BP 173/90; PULSE 90; RESP 20; TEMP 98; O2SAT 97
[2017-07-23] MEDS ORDERED: SODIUM CHLOR 0.9% 1000 ML INJ 1,000 ML IV ONE (20:22)
--- NOTE | 2017-07-23 20:28 | PD ---
HPI Chief Complaint: Flank/Kidney Pain Time Seen by Provider: 20:22 Travel History International Travel<30 days: No Contact w/Intl Traveler<30days: No Traveled to known affect area: No History of Present Illness HPI 42-year-old female presents to the emergency department by private transportation for complaint of severe left-sided flank pain radiating to the left lower quadrant onset since last evening. Symptoms have progressively worsened. Patient rates her pain 8-9/10 in intensity. Patient had associated nausea and vomiting. Patient denies dysuria frequency urgency or hematuria. Patient denies vaginal discharge or vaginal bleeding. Last menstrual period was 2 weeks ago and normal for her. Patient has polycystic ovary disease and states symptoms are not similar to this. No prior history of colitis or diverticulitis but has had mild diarrhea. No melena hematochezia no hematuria emesis or coffee-ground emesis. No fever or chills. Patient is unable to find position of comfort. Patient notes that walking and palpation increases pain. Patient has history of anxiety hypertension and diabetes as well as polycystic ovary disease. Patient is 5 para 2 AB 3. Patient is status post tonsillectomy 2 and tubal ligation and denies other surgical intervention. Patient is unable to identify alleviating factors. PFSH Past Medical History Narrative Medical Anxiety hypertension diabetes seizure polycystic ovary disease AB 3 C- section tubal ligation tonsillectomy; no tobacco use; nursing notes reviewed Arthritis: No Asthma: No Anxiety: Yes Heart Rhythm Problems: No Cardiovascular Problems: No High Cholesterol: No Chest Pain: Yes Congestive Heart Failure: No COPD: No Cerebrovascular Accident: No Diabetes: Yes Patient Takes Glucophage: Yes (07/23/17 at 0900) Diminished Hearing: No Gastrointestinal Disorders: No GERD: No Genitourinary: No Headaches: No Hiatal Hernia: No Hypertension: Yes (PREECLAMPSIA HISTORY) Kidney Stones: No Musculoskeletal: No Neurologic: No Reproductive: Yes (Miscarriages) Respiratory: No Immunizations Current: Yes Migraines: No Renal Failure: No Seizures: Yes (PT STATES BUT NOT DIAGNOSED BY ) Sleep Apnea: No Ulcer: No Tetanus Vaccination: < 5 Years Influenza Vaccination: No ?: Unknown LMP: 2 WEEKS AGO : 5 Para: 1 Miscarriage: 3 Past Surgical History Abdominal Surgery: No Cardiac Surgery: No Section: Yes (X2) Ear Surgery: No Endocrine Surgery: No Eye Surgery: No Genitourinary Surgery: No Neurologic Surgery: No Thoracic Surgery: No Tonsillectomy: Yes Social History Alcohol Use: No Tobacco Use: No Substance Use: No Allergies-Medications (Allergen,Severity, Reaction): Coded Allergies: iodine (Unverified Allergy, Severe, Anaphylaxis, 07/23/17) potassium iodide (Unverified Allergy, Severe, Anaphylaxis, 07/23/17) povidone-iodine (Unverified Allergy, Severe, Anaphylaxis, 07/23/17) shellfish derived (Unverified Allergy, Severe, SWEELING TO THROAT AND FACE , 07/23/17) PT DENIES sodium iodide (Unverified Allergy, Severe, Anaphylaxis, 07/23/17) sodium iodide (Unverified Allergy, Severe, Anaphylaxis, 07/23/17) Reported Meds & Prescriptions Reported Meds & Active Scripts Active Glucophage (Metformin HCl) 850 Mg Tab 850 Mg PO DAILY 30 Days Glucocom Test Strips (Blood Glucose Test Strips) 1 Katalina Katalina Ea .XX DIRECTED Lancets 1 Mis Mis Ea .XX DIRECTED Glucocom Blood Glucose Mo W/Device (Device) 1 Kit Kit Kit .XX DIRECTED Lisinopril 5 Mg Tab 5 Mg PO DAILY 30 Days Reported Citalopram (Citalopram Hydrobromide) 10 Mg Tab 10 Mg PO DAILY Review of Systems Except as stated in HPI: all other systems reviewed are Neg General / Constitutional: No: Fever, Chills HENT: No: Congestion Cardiovascular: No: Chest Pain or Discomfort Respiratory: No: Shortness of Breath Gastrointestinal: Positive: Nausea, Vomiting, Abdominal Pain (LLQ), No: Other Genitourinary: Positive: Flank Pain, No: Urgency, Frequency, Dysuria, Hematuria , Discharge, Vaginal Bleeding Musculoskeletal: No: Myalgias, Arthralgias Skin: No Rash Neurologic: No: Weakness Psychiatric: No: Anxiety Hematologic/Lymphatic: No: Lymph Node Enlargement Physical Exam Narrative GENERAL: Well-developed well-nourished female in obvious discomfort no respiratory distress SKIN: Warm and dry. HEAD: Normocephalic. EYES: No scleral icterus. No injection or drainage. NECK: Supple, trachea midline. No JVD or lymphadenopathy. CARDIOVASCULAR: Regular rate and rhythm without murmurs, gallops, or rubs. RESPIRATORY: Breath sounds equal bilaterally. No accessory muscle use. GASTROINTESTINAL: Abdomen soft, left upper quadrant and left lower quadrant tenderness to palpation, nondistended. MUSCULOSKELETAL: No cyanosis, or edema. BACK: Nontender without obvious deformity. Left CVA tenderness. Data Data Last Documented VS Vital Signs Date Time Temp Pulse Resp B/P (MAP) Pulse Ox O2 Delivery O2 Flow Rate FiO2 07/23/17 22:35 73 16 132/77 (95) 97 Room Air 07/23/17 19:59 98.0 Orders Orders Complete Blood Count With Diff (07/23/17 20:22) Basic Metabolic Panel (Bmp) (07/23/17 20:22) Urinalysis - C+S If Indicated (07/23/17 20:22) Ed Urine Pregnancytest Poc (07/23/17 20:22) Ct Abd/Pel W/O Iv Contrast (07/23/17 20:22) Ecg Monitoring (07/23/17 20:22) Iv Access Insert/Monitor (07/23/17 20:22) Ketorolac Inj (Toradol Inj) (07/23/17 20:30) Ondansetron Inj (Zofran Inj) (07/23/17 20:30) Sodium Chloride 0.9% Flush (Ns Flush) (07/23/17 20:30) Sodium Chlor 0.9% 1000 Ml Inj (Ns 1000 M (07/23/17 20:22) Morphine Inj (Morphine Inj) (07/23/17 20:30) Labs Laboratory Tests Test 07/23/17 20:44 White Blood Count 8.0 TH/MM3 Red Blood Count 4.87 MIL/MM3 Hemoglobin 12.6 GM/DL Hematocrit 37.4 % Mean Corpuscular Volume 76.8 FL Mean Corpuscular Hemoglobin 25.9 PG Mean Corpuscular Hemoglobin Concent 33.8 % Red Cell Distribution Width 13.2 % Platelet Count 255 TH/MM3 Mean Platelet Volume 8.5 FL Neutrophils (%) (Auto) 65.9 % Lymphocytes (%) (Auto) 28.5 % Monocytes (%) (Auto) 3.4 % Eosinophils (%) (Auto) 1.6 % Basophils (%) (Auto) 0.6 % Neutrophils # (Auto) 5.3 TH/MM3 Lymphocytes # (Auto) 2.3 TH/MM3 Monocytes # (Auto) 0.3 TH/MM3 Eosinophils # (Auto) 0.1 TH/MM3 Basophils # (Auto) 0.0 TH/MM3 CBC Comment DIFF FINAL Differential Comment Urine Collection Type CLEAN CATCH Urine Color YELLOW Urine Turbidity SL CLOUDY Urine pH 5.[address] GREATER/EQUAL 1.030 Urine Protein NEG mg/dL Urine Glucose (UA) 250 mg/dL Urine Ketones TRACE mg/dL Urine Occult Blood NEG Urine Nitrite NEG Urine Bilirubin NEG Urine Urobilinogen 1.0 MG/DL Urine Leukocyte Esterase NEG Urine WBC 0-2 /hpf Urine Squamous Epithelial Cells 6-8 /hpf Urine Amorphous Sediment FEW Urine Bacteria OCC /hpf Urine Mucus MOD /lpf Microscopic Urinalysis Comment CULT NOT INDICATED Blood Urea Nitrogen 13 MG/DL Creatinine 1.10 MG/DL Random Glucose 200 MG/DL Calcium Level 8.8 MG/DL Sodium Level 135 MEQ/L Potassium Level 3.7 MEQ/L Chloride Level 102 MEQ/L Carbon Dioxide Level 26.1 MEQ/L Anion Gap 7 MEQ/L Estimat Glomerular Filtration Rate 54 ML/MIN MDM Medical Decision Making Medical Screen Exam Complete: Yes Emergency Medical Condition: Yes Medical Record Reviewed: Yes Interpretation(s) Last Impressions Abdomen/Pelvis CT 07/23/172021 Signed Impressions: Service Date/Time: Sunday, July 23, 2017 21:16 - CONCLUSION: 1. No acute abnormality or significant change is seen. 2. Nonspecific splenomegaly. This was present previously. Demetrio Wolff MD CBC & BMP Diagram 07/23/17 20:44 Calcium Level 8.8 Vital Signs Date Time Temp Pulse Resp B/P (MAP) Pulse Ox O2 Delivery O2 Flow Rate FiO2 07/23/17 22:35 73 16 132/77 (95) 97 Room Air 07/23/17 22:05 16 07/23/17 21:07 83 16 156/86 (109) 96 Room Air 07/23/17 21:05 16 07/23/17 19:59 98.0 90 20 173/90 (117) 97 Differential Diagnosis Obstructive uropathy, pyelonephritis, diverticulitis, colitis, gastroenteritis, ectopic , ruptured ovarian cyst, ovarian torsion Narrative Course IV access obtained specimens collected and sent for resulting patient administered normal saline along with Toradol 30 mg IV morphine sulfate 3 mg IV and Zofran 4 mg IV; patient sent for CT kidney stone protocol Diagnosis Primary Impression: Flank pain Additional Impressions: Hyperglycemia Splenomegaly Referrals: Primary Care Physician call for appointment Patient Instructions: General Instructions, Narcotic given in the ED Additional Instructions: Increase fluid hydration Take medication as prescribed Return to the emergency department for any concerns or change in condition Take acetaminophen/Tylenol as needed for fever 100.4F or greater Continue chronic medications as chronically prescribed Med/Other Pt SpecificInfo: Prescription(s) given Scripts Methocarbamol (Robaxin) 750 Mg Tab 750 MG PO Q6HR for Muscle Spasm, #10 TAB 0 Refills Prov: Heidy Caraballo MD 07/23/17 Oxycodone-Acetaminophen (Percocet) 5-325 mg Tab 1 TAB PO Q6H Y for PAIN, #10 TAB 0 Refills Prov: Heidy Caraballo MD 07/23/17 Metoclopramide (Reglan) 10 Mg Tab 10 MG PO Q6HR for Nausea/Vomiting, #10 TAB 0 Refills Prov: Heidy Caraballo MD 07/23/17 Disposition: 01 DISCHARGE HOME Condition: Stable Heidy Caraballo MD Jul 23, 2017 20:28
[2017-07-23] MEDS ORDERED: ONDANSETRON HCL 4 MG/2 ML VIAL IV PUSH ONE (20:30)
[2017-07-23] MEDS ORDERED: MORPHINE SULFATE 2 MG/ML SYRINGE IV PUSH ONE (20:30)
[2017-07-23] MEDS ORDERED: KETOROLAC TROMETHAMINE 30 MG/ML (IVP) VIAL IV PUSH ONE (20:30)
[2017-07-23] MEDS ORDERED: SODIUM CHLORIDE 0.9% FLUSH 10 ML FLUSH IVF PRN (20:30)
[2017-07-23 21:07] VITALS: BP 156/86; PULSE 83; RESP 16; O2SAT 96
[2017-07-23 21:17] LABS: AUTOMATED NEUTROPHIL # 5.3 TH/MM3 (1.8-7.7); BASOPHIL % 0.6 % (0.0-2.0); EOSINOPHIL # 0.1 TH/MM3 (0-0.4); EOSINOPHIL % 1.6 % (0.0-4.0); HEMATOCRIT 37.4 % (35.0-46.0); HEMOGLOBIN 12.6 GM/DL (11.6-15.3); LYMPH % 28.5 % (9.0-44.0); LYMPHOCYTE # 2.3 TH/MM3 (1.0-4.8); MEAN CELL VOLUME 76.8 FL (80.0-100.0); MEAN CORPUSCULAR HEMOGLOBIN 25.9 PG (27.0-34.0); MEAN CORPUSCULAR HGB CONC 33.8 % (32.0-36.0); MEAN PLATELET VOLUME 8.5 FL (7.0-11.0); MONO % 3.4 % (0.0-8.0); MONOCYTE # 0.3 TH/MM3 (0-0.9); NEUT % 65.9 % (16.0-70.0); PLATELET COUNT 255 TH/MM3 (150-450); RED BLOOD COUNT 4.87 MIL/MM3 (4.00-5.30); RED CELL DISTRIBUTION WIDTH 13.2 % (11.6-17.2)
[2017-07-23 21:25] LABS: BILIRUBIN, URINE NEG (NEG); BLOOD, URINE NEG (NEG); GLUCOSE,URINE 250 mg/dL (NEG); KETONE, URINE TRACE mg/dL (NEG); NITRITE,URINE NEG (NEG); URINE COLOR YELLOW (YELLW/STRAW); URINE LEUKOCYTE ESTERASE NEG (NEG)
[2017-07-23 21:29] LABS: BICARBONATE 26.1 MEQ/L (21.0-32.0); CALCIUM 8.8 MG/DL (8.5-10.1)
[2017-07-23 21:33] LABS: CREATININE 1.1 MG/DL (0.50-1.00)
[2017-07-23 21:41] LABS: MUCUS URINE MOD /lpf (OCC)
[2017-07-23 21:42] LABS: AMORPHOUS SEDIMENT, URINE FEW; BACTERIA, URINE OCC /hpf; WBC, URINE 0-2 /hpf (0-5)
--- NOTE | 2017-07-23 22:02 | RADRPT ---
EXAM DATE/TIME: 07/23/2017 21:16 [facility] COMPARISON: CT ABDOMEN & PELVIS W/O CONTRAST, February 24, 2016, 21:12. INDICATIONS : Left flank pain. Nausea and vomiting. ORAL CONTRAST: No oral contrast ingested. RADIATION DOSE: 26.45 CTDIvol (mGy) ; Patient body habitus MEDICAL HISTORY : Diabetes mellitus type 2. Hypertension. SURGICAL HISTORY : section. ENCOUNTER: Initial ACUITY: 1 day PAIN SCALE: 8/10 LOCATION: Left flank TECHNIQUE: Volumetric scanning of the abdomen and pelvis was performed. Using automated exposure control and ad justment of the mA and/or kV according to patient size, radiation dose was kept as low as reasonably achievable to obtain optimal diagnostic quality images. DICOM format image data is available electro nically for review and comparison. FINDINGS: LOWER LUNGS: The visualized lower lungs are clear. LIVER: Homogeneous density without lesion. There is no dilation of the biliary tree. No calcified gallston es. SPLEEN: The spleen is mildly enlarged measuring 14.5 cm. PANCREAS: Within normal limits. KIDNEYS: Normal in size and shape. There is no mass, stone, or hydronephrosis. ADRENAL GLANDS: There is a stable 1.3 cm low-density mass, -3 Hounsfield units, consistent with a small adenoma at th e apex of the left adrenal gland. The right adrenal gland is normal. VASCULAR: There is no aortic aneurysm. BOWEL/MESENTERY: The stomach, small bowel, and colon demonstrate no acute abnormality. There is no free intraperitone al air or fluid. ABDOMINAL WALL: Within normal limits. RETROPERITONEUM: There is no lymphadenopathy. BLADDER: No wall thickening or mass. REPRODUCTIVE: There is a calcification at the inferior aspect of the uterus likely related to leiomyoma. INGUINAL: There is no lymphadenopathy or hernia. MUSCULOSKELETAL: Within normal limits for patient age. CONCLUSION: 1. No acute abnormality or significant change is seen. 2. Nonspecific splenomegaly. This was present previously. Demetrio Wolff MD on July 23, 2017 at 21:55 Board Certified Radiologist. This report was verified electronically.
[2017-07-23 22:35] VITALS: BP 132/77; PULSE 73; RESP 16; O2SAT 97
[2017-07-23] MEDS ORDERED: PERC5TAB12 PO (22:51)
[2017-07-23] MEDS ORDERED: ROBA750T PO (22:51)
[2017-07-23] MEDS ORDERED: REGL10TA5 PO (22:51)
== END 2017-07-23 23:07 | disposition home or self-care (01) ==
LOC: PHED 19:56
DX: R10.32 Left lower quadrant pain (principal); E11.65 Type 2 diabetes mellitus with hyperglycemia; R16.1 Splenomegaly, not elsewhere classified; E28.2 Polycystic ovarian syndrome; I10 Essential (primary) hypertension; F41.9 Anxiety disorder, unspecified; Z79.84 Long term (current) use of oral hypoglycemic drugs
CPT/HCPCS: 74176; 80048; 81001; 84703; 85025; 96361; 96374; 99284; J1885; J2270; J2405; J7030

== ENCOUNTER 2017-08-23 07:23 | Emergency (ER) | payer SELFPAY, BC ==
[2017-08-23] MEDS: LIDOCAINE HCL 1% PF 2 ML VIAL (07:39)
[2017-08-23] MEDS: LIDOCAINE HCL 1% 50 ML VIAL INFIL (07:45)
[2017-08-23] MEDS: SULFAMETHOXAZOLE-TRIMETHOPRIM DS 800-160 MG TAB PO (07:48)
[2017-08-23] MEDS: CEPHALEXIN MONOHYDRATE 500 MG CAP PO (07:48)
[2017-08-23] MEDS: IBUPROFEN 600 MG TAB PO (08:30)
== END 2017-08-23 08:30 | disposition home or self-care (01) ==
LOC: PHED 07:23
DX: L02.415 Cutaneous abscess of right lower limb (principal); F41.9 Anxiety disorder, unspecified; E11.9 Type 2 diabetes mellitus without complications; I10 Essential (primary) hypertension; Z86.69 Personal history of other diseases of the nervous system and sense organs; Z79.899 Other long term (current) drug therapy; Z88.8 Allergy status to other drugs, medicaments and biological substances
CPT/HCPCS: 10060; 99283-25

== ENCOUNTER 2017-10-02 16:04 | Emergency (ER) | payer SELFPAY ==
[2017-10-02] VITALS (8 sets, daily range): BP systolic 123–174; BP diastolic 61–100; PULSE 65–76; RESP 18–20; TEMP 98.4; O2SAT 95–99
[~2017-10-02 16:04] MED LIST changes: +BACT800T5 PO; +CEPH-460 PO; +PERC5TAB12 PO; +REGL10TA5 PO; +ROBA750T PO
[2017-10-02] MEDS ORDERED: ASPIRIN 81 MG CHEW TAB PO ONE (16:15)
[2017-10-02] MEDS ORDERED: SODIUM CHLORIDE 0.9% FLUSH 10 ML FLUSH IVF PRN (16:15)
[2017-10-02] MEDS ORDERED: KETOROLAC TROMETHAMINE 30 MG/ML (IVP) VIAL IV PUSH ONE (16:15)
[2017-10-02 16:40] LABS: CHLORIDE 106 MEQ/L (98-107); SODIUM (NA) 138 MEQ/L (136-145)
[2017-10-02 16:44] LABS: CALCIUM 8.6 MG/DL (8.5-10.1)
[2017-10-02 16:45] LABS: BICARBONATE 25.3 MEQ/L (21.0-32.0); BLOOD UREA NITROGEN 14 MG/DL (7-18); GLUCOSE,RANDOM 182 MG/DL (74-106)
[2017-10-02 16:48] LABS: GLOMERULAR FILTRATION RATE 49 ML/MIN (>89)
--- NOTE | 2017-10-02 16:48 | PD ---
HPI Chief Complaint: Chest Pain Time Seen by Provider: 16:11 Travel History International Travel<30 days: No Contact w/Intl Traveler<30days: No Traveled to known affect area: No History of Present Illness HPI 42-year-old female came to the emergency room with history of chest pain since this morning. Patient points to her epigastric area as the origin of the pain and pain radiating up to her sub-sternum and into the left side of the chest and left shoulder. Patient appears to be very anxious and started crying because of the pain. She says the pain is 9 out of 10 currently. Patient had chest pain 2 months ago and had come to this emergency room. At that time she had a nuclear stress test which was negative. Patient says the nature of this pain is different and it is more sharp. No aggravating or relieving factors identified. Vital signs are stable. Patient is not a smoker. No history of DVT or PEs. No recent history of traveling or hospitalization or any prolonged immobilization. Vital signs are stable. [facility] Past Medical History Narrative Medical List of her past medical, surgical, social and family history is reviewed from the nursing note Arthritis: No Asthma: No Anxiety: Yes Heart Rhythm Problems: No Cardiovascular Problems: No High Cholesterol: No Chest Pain: Yes Congestive Heart Failure: No COPD: No Cerebrovascular Accident: No Diabetes: Yes Patient Takes Glucophage: No Diminished Hearing: No Gastrointestinal Disorders: No GERD: No Genitourinary: No Headaches: No Hiatal Hernia: No Hypertension: Yes Kidney Stones: No Musculoskeletal: No Neurologic: No Reproductive: Yes (Miscarriages) Respiratory: No Immunizations Current: Yes Migraines: No Renal Failure: No Seizures: Yes Sleep Apnea: No Ulcer: No ?: Not : 5 Para: 1 Miscarriage: 3 Past Surgical History Abdominal Surgery: No Cardiac Surgery: No Section: Yes (X's 2 ) Ear Surgery: No Endocrine Surgery: No Eye Surgery: No Genitourinary Surgery: No Neurologic Surgery: No Thoracic Surgery: No Tonsillectomy: Yes Social History Alcohol Use: No Tobacco Use: No Substance Use: No Allergies-Medications (Allergen,Severity, Reaction): Coded Allergies: iodine (Verified Allergy, Severe, Anaphylaxis, 10/02/17) potassium iodide (Verified Allergy, Severe, Anaphylaxis, 10/02/17) povidone-iodine (Verified Allergy, Severe, Anaphylaxis, 10/02/17) shellfish derived (Verified Allergy, Severe, Throat and face swelling , ) sodium iodide (Verified Allergy, Severe, Anaphylaxis, 10/02/17) sodium iodide (Verified Allergy, Severe, Anaphylaxis, 10/02/17) Comments List of her allergies reviewed from the nursing note. Reported Meds & Prescriptions Reported Meds & Active Scripts Active Reported Citalopram (Citalopram Hydrobromide) 10 Mg Tab 40 Mg PO DAILY Narrative Medication List of her home medications reviewed from the nursing note. Review of Systems Except as stated in HPI: all other systems reviewed are Neg Cardiovascular: Positive: Chest Pain or Discomfort Physical Exam Narrative GENERAL: Awake, alert, morbidly obese, very anxious in moderate distress SKIN: Focused skin assessment warm/dry. HEAD: Atraumatic. Normocephalic. EYES: Pupils equal and round. No scleral icterus. No injection or drainage. ENT: No nasal bleeding or discharge. Mucous membranes pink and moist. NECK: Trachea midline. No JVD. CARDIOVASCULAR: Regular rate and rhythm. No murmur appreciated. RESPIRATORY: No accessory muscle use. Clear to auscultation. Breath sounds equal bilaterally. GASTROINTESTINAL: Abdomen soft, non-tender, nondistended. Hepatic and splenic margins not palpable. MUSCULOSKELETAL: No obvious deformities. No clubbing. No cyanosis. No edema. NEUROLOGICAL: Awake and alert. No obvious cranial nerve deficits. Motor grossly within normal limits. Normal speech. PSYCHIATRIC: Appropriate mood and affect; insight and judgment normal. Data Data Last Documented VS Vital Signs Date Time Temp Pulse Resp B/P (MAP) Pulse Ox O2 Delivery O2 Flow Rate FiO2 10/02/17 21:40 72 18 174/89 (117) 98 10/02/17 20:00 Nasal Cannula 2.00 10/02/17 16:14 98.4 Orders Orders Electrocardiogram (10/02/17 16:12) Basic Metabolic Panel (Bmp) (10/02/17 16:12) Ckmb (Isoenzyme) Profile (10/02/17 16:12) Complete Blood Count With Diff (10/02/17 16:12) D-Dimer (10/02/17 16:12) Magnesium (Mg) (10/02/17 16:12) Prothrombin Time / Inr (Pt) (10/02/17 16:12) Act Partial Throm Time (Ptt) (10/02/17 16:12) Troponin I (10/02/17 16:12) Ecg Monitoring (10/02/17 16:12) Bilateral Bp Monitoring (10/02/17 16:12) Iv Access Insert/Monitor (10/02/17 16:12) Oximetry (10/02/17 16:12) Oxygen Administration (10/02/17 16:12) Aspirin Chew (Aspirin Chew) (10/02/17 16:15) Sodium Chloride 0.9% Flush (Ns Flush) (10/02/17 16:15) Chest, Pa & Lat (10/02/17 16:12) Ketorolac Inj (Toradol Inj) (10/02/17 16:15) Troponin I (10/02/17 19:15) Ventilation & Perfusion Scan (10/02/17 ) Tramadol (Ultram) (10/02/17 21:15) Ed Discharge Order (10/02/17 21:21) Labs Laboratory Tests Test 10/02/17 16:15 10/02/17 17:45 White Blood Count 7.7 TH/MM3 Red Blood Count 5.12 MIL/MM3 Hemoglobin 13.5 GM/DL Hematocrit 40.2 % Mean Corpuscular Volume 78.6 FL Mean Corpuscular Hemoglobin 26.4 PG Mean Corpuscular Hemoglobin Concent 33.6 % Red Cell Distribution Width 13.3 % Platelet Count 277 TH/MM3 Mean Platelet Volume 8.9 FL Neutrophils (%) (Auto) 63.7 % Lymphocytes (%) (Auto) 30.1 % Monocytes (%) (Auto) 3.6 % Eosinophils (%) (Auto) 1.9 % Basophils (%) (Auto) 0.7 % Neutrophils # (Auto) 4.9 TH/MM3 Lymphocytes # (Auto) 2.3 TH/MM3 Monocytes # (Auto) 0.3 TH/MM3 Eosinophils # (Auto) 0.1 TH/MM3 Basophils # (Auto) 0.1 TH/MM3 CBC Comment DIFF FINAL Differential Comment Prothrombin Time 10.2 SEC Prothromb Time International Ratio 1.0 RATIO Activated Partial Thromboplast Time 26.5 SEC D-Dimer Quantitative (PE/DVT) 0.57 MG/L FEU Blood Urea Nitrogen 14 MG/DL Creatinine 1.20 MG/DL Random Glucose 182 MG/DL Calcium Level 8.6 MG/DL Magnesium Level 2.0 MG/DL Sodium Level 138 MEQ/L Potassium Level 3.7 MEQ/L Chloride Level 106 MEQ/L Carbon Dioxide Level 25.3 MEQ/L Anion Gap 7 MEQ/L Estimat Glomerular Filtration Rate 49 ML/MIN Total Creatine Kinase 84 U/L Troponin I LESS THAN 0.02 NG/ML LESS THAN 0.02 NG/ML MDM Medical Decision Making Medical Screen Exam Complete: Yes Emergency Medical Condition: Yes Medical Record Reviewed: Yes Interpretation(s) Twelve-lead EKG was reviewed by me. Normal sinus rhythm, normal axis, nonspecific ST-T wave changes. Heart rate of 81 bpm. Differential Diagnosis Atypical chest pain, ACS Narrative Course 4:47 PM. Patient was medicated for pain with Toradol. Awaiting for blood test results. 5:25 PM blood test results came back and patient has slightly elevated d-dimer. Troponin is within normal limit. I have ordered CT pulmonary angiogram. If this is negative given her recent negative stress test I will order a second troponin and if that is negative patient will be discharged. 7:11 PM patient is allergic to the IV contrast dye. VQ scan has been ordered. Pending VQ scan and the second troponin. Case has been signed over to the oncoming ER physician. Procedures EKG Prior to Arrival: Misty Greer MD Oct 02, 2017 16:48
[2017-10-02 16:49] LABS: AUTOMATED NEUTROPHIL # 4.9 TH/MM3 (1.8-7.7); BASOPHIL # 0.1 TH/MM3 (0-0.2); BASOPHIL % 0.7 % (0.0-2.0); EOSINOPHIL # 0.1 TH/MM3 (0-0.4); EOSINOPHIL % 1.9 % (0.0-4.0); HEMATOCRIT 40.2 % (35.0-46.0); HEMOGLOBIN 13.5 GM/DL (11.6-15.3); LYMPH % 30.1 % (9.0-44.0); LYMPHOCYTE # 2.3 TH/MM3 (1.0-4.8); MEAN CELL VOLUME 78.6 FL (80.0-100.0); MEAN CORPUSCULAR HEMOGLOBIN 26.4 PG (27.0-34.0); MEAN CORPUSCULAR HGB CONC 33.6 % (32.0-36.0); MEAN PLATELET VOLUME 8.9 FL (7.0-11.0); MONO % 3.6 % (0.0-8.0); MONOCYTE # 0.3 TH/MM3 (0-0.9); NEUT % 63.7 % (16.0-70.0); PLATELET COUNT 277 TH/MM3 (150-450); RED BLOOD COUNT 5.12 MIL/MM3 (4.00-5.30); RED CELL DISTRIBUTION WIDTH 13.3 % (11.6-17.2); WHITE BLOOD COUNT 7.7 TH/MM3 (4.0-11.0)
[2017-10-02 16:53] LABS: TROPONIN I LESS THAN 0.02 NG/ML (0.02-0.05)
[2017-10-02 17:05] LABS: PROTHROMBIN TIME - PATIENT 10.2 SEC (9.8-11.6)
[2017-10-02 17:08] LABS: D-DIMER 0.57 MG/L FEU (0.00-0.50)
--- NOTE | 2017-10-02 17:35 | RADRPT ---
EXAM DATE: 10/02/2017 5:32 PM EDT AGE/SEX: 42 years / Female INDICATIONS: Chest pain, shortness of breath. CLINICAL DATA: This is the patient's initial encounter. Patient reports that signs and symptoms have been present for 1 day and indicates a pain score of 8/10. MEDICAL/SURGICAL HISTORY: Diabetes mellitus type II. None. COMPARISON: [facility], CHEST PA & LAT, 07/12/2017. . FINDINGS: PA and lateral views of the chest demonstrate the lungs to be symmetrically aerated without evidence of mass, infiltrate or effusion. The cardiomediastinal contours are unremarkable. Osseous structures are intact. CONCLUSION: No active disease. Electronically signed by: Luis Calderon MD 10/02/2017 5:34 PM EDT
--- NOTE | 2017-10-02 20:44 | RADRPT ---
EXAM DATE: 10/02/2017 8:40 PM EDT AGE/SEX: 42 years / Female INDICATIONS: Chest pain. CLINICAL DATA: This is the patient's initial encounter. Patient reports that signs and symptoms have been present for 1 day and indicates a pain score of 0/10. MEDICAL/SURGICAL HISTORY: Diabetes mellitus type II. Hypertension. section. Tonsille ctomy. Tubal ligation. COMPARISON: [facility], CHEST PA & LAT, 10/02/2017. . DOSE: 1.3 mCi Tc99m DTPA aerosol 8.5 mCi Tc99m MAA IV TECHNIQUE: Following five minutes of tidal breathing of DTPA aerosol, planar images of the lungs wer e performed in eight projections. The patient was then injected with MAA, and eight-view perfusion s can was performed. FINDINGS: There is a homogeneous pattern of aerosol delivery to the periphery of both lungs. No focal ventilat ory defects are seen. The perfusion lung scan demonstrates a homogenous pattern of uptake in both lungs. No segmental or s ubsegmental defects are seen. CONCLUSION: 1. Negative for pulmonary embolism. Electronically signed by: Luis Calderon MD 10/02/2017 8:43 PM EDT
[2017-10-02] MEDS ORDERED: traMADol HCL 50 MG TAB PO ONE (21:15)
--- NOTE | 2017-10-02 21:21 | PD ---
Data Data Last Documented VS Vital Signs Date Time Temp Pulse Resp B/P (MAP) Pulse Ox O2 Delivery O2 Flow Rate FiO2 10/02/17 21:40 72 18 174/89 (117) 98 10/02/17 20:00 Nasal Cannula 2.00 10/02/17 16:14 98.4 Orders Orders Electrocardiogram (10/02/17 16:12) Basic Metabolic Panel (Bmp) (10/02/17 16:12) Ckmb (Isoenzyme) Profile (10/02/17 16:12) Complete Blood Count With Diff (10/02/17 16:12) D-Dimer (10/02/17 16:12) Magnesium (Mg) (10/02/17 16:12) Prothrombin Time / Inr (Pt) (10/02/17 16:12) Act Partial Throm Time (Ptt) (10/02/17 16:12) Troponin I (10/02/17 16:12) Ecg Monitoring (10/02/17 16:12) Bilateral Bp Monitoring (10/02/17 16:12) Iv Access Insert/Monitor (10/02/17 16:12) Oximetry (10/02/17 16:12) Oxygen Administration (10/02/17 16:12) Aspirin Chew (Aspirin Chew) (10/02/17 16:15) Sodium Chloride 0.9% Flush (Ns Flush) (10/02/17 16:15) Chest, Pa & Lat (10/02/17 16:12) Ketorolac Inj (Toradol Inj) (10/02/17 16:15) Troponin I (10/02/17 19:15) Ventilation & Perfusion Scan (10/02/17 ) Tramadol (Ultram) (10/02/17 21:15) Ed Discharge Order (10/02/17 21:21) Labs Laboratory Tests Test 10/02/17 16:15 10/02/17 17:45 White Blood Count 7.7 TH/MM3 Red Blood Count 5.12 MIL/MM3 Hemoglobin 13.5 GM/DL Hematocrit 40.2 % Mean Corpuscular Volume 78.6 FL Mean Corpuscular Hemoglobin 26.4 PG Mean Corpuscular Hemoglobin Concent 33.6 % Red Cell Distribution Width 13.3 % Platelet Count 277 TH/MM3 Mean Platelet Volume 8.9 FL Neutrophils (%) (Auto) 63.7 % Lymphocytes (%) (Auto) 30.1 % Monocytes (%) (Auto) 3.6 % Eosinophils (%) (Auto) 1.9 % Basophils (%) (Auto) 0.7 % Neutrophils # (Auto) 4.9 TH/MM3 Lymphocytes # (Auto) 2.3 TH/MM3 Monocytes # (Auto) 0.3 TH/MM3 Eosinophils # (Auto) 0.1 TH/MM3 Basophils # (Auto) 0.1 TH/MM3 CBC Comment DIFF FINAL Differential Comment Prothrombin Time 10.2 SEC Prothromb Time International Ratio 1.0 RATIO Activated Partial Thromboplast Time 26.5 SEC D-Dimer Quantitative (PE/DVT) 0.57 MG/L FEU Blood Urea Nitrogen 14 MG/DL Creatinine 1.20 MG/DL Random Glucose 182 MG/DL Calcium Level 8.6 MG/DL Magnesium Level 2.0 MG/DL Sodium Level 138 MEQ/L Potassium Level 3.7 MEQ/L Chloride Level 106 MEQ/L Carbon Dioxide Level 25.3 MEQ/L Anion Gap 7 MEQ/L Estimat Glomerular Filtration Rate 49 ML/MIN Total Creatine Kinase 84 U/L Troponin I LESS THAN 0.02 NG/ML LESS THAN 0.02 NG/ML MDM Supervised Visit with MICAH: No Narrative Course Patient care assumed from Dr. Preciado at 1900. This is a 42 year old female presented with epigastric pain. For me she states pain is on left chest radiating to left arm. Trop neg x 2. I was asked to follow up vq scan and disposition appropriately. Patient vq negative for PE. Had recent nuc stress at this institution which was negative. Discussed follow up with PCP and authorization coordinator. Diagnosis Primary Impression: Chest pain Additional Instruction: Follow up with your regular physician by phone tomorrow. Disposition: 01 DISCHARGE HOME Condition: Stable Rock Lu MD Oct 02, 2017 21:21
--- NOTE | 2017-10-03 23:10 | EKG ---
Date Performed: 10/02/2017 Time Performed: 16:09:24 PTAGE: 42 years EKG: Sinus rhythm POSSIBLE RIGHT VENTRICULAR CONDUCTION DELAY BORDERLINE ECG PREVIOUS TRACING : 07/12/2017 19.31 DOCTOR: Acacia Peter Interpretating Date/Time 10/03/2017 23:00:10
== END 2017-10-02 21:54 | disposition home or self-care (01) ==
LOC: PHED 16:04
DX: R07.9 Chest pain, unspecified (principal); R94.31 Abnormal electrocardiogram [ECG] [EKG]; E11.9 Type 2 diabetes mellitus without complications; I10 Essential (primary) hypertension
CPT/HCPCS: 71046; 78582; 80048; 82550; 83735; 84484; 85025; 85379; 85610; 85730; 93005; 96374; 99285; A9540; A9567; J1885